=== PATIENT | male | born 1965 | race Caucasian/White ===

== ENCOUNTER 2019-04-09 10:03 | Emergency (ER) | payer OTHER ==
[~2019-04-09] VITALS: Ht 157.5 cm; Wt 79.4 kg
--- NOTE | 2019-04-09 10:03 | NUR ---
Patient BIBA BLS, transferred to bed 3. RN evaluating patient at bedside.
--- NOTE | 2019-04-09 10:05 | NUR ---
54 Y MALE BIBA FOR MECHANICAL FALL. PT REPORTS TRIPPING OVER CLOTHES, LANDING ON HANDS. PT REPORTS 7/10 PAIN IN HANDS AND WRISTS. NO REDNESS, SWELLING, OR ABRASIONS PRESENT. +PALPABLE RADIAL PULSES. +ROM. DENIES HITTING HEAD, NO LOC. VSS AT THIS TIME. PT ALERT AND ORIENTED. FAMILY BEDSIDE. BED IS DOWN, LOCKED, BED RAIL X 1, ERMD TO SEE PT. MEDHX:HTN, PACEMAKER RX:ASPIRIN, ENALAPRIL
--- NOTE | 2019-04-09 10:06 | NUR ---
CORRECTION: CAREGIVER BEDSIDE, NOT FAMILY
[2019-04-09 10:14] VITALS: BP 160/74
--- NOTE | 2019-04-09 10:33 | NUR ---
Dr. Quintana evaluating patient at bedside.
[2019-04-09] MEDS ORDERED: IBUPROFEN 600 MG TAB PO ONE (10:45)
[2019-04-09] MEDS ORDERED: traMADol 50 MG TAB PO ONE (10:45)
--- NOTE | 2019-04-09 11:06 | NUR ---
PT RETURNED FROM [facility] VIA WHEELCHAIR. PT ALERT AND ORIENTED. PAIN 03/03.
--- NOTE | 2019-04-09 11:16 | NUR ---
PT FROM [facility]. CAREGIVER STATES SHE WILL PROVIDE TRANSPORTATION BACK TO FACILITY.
--- NOTE | 2019-04-09 11:17 | NUR ---
DR KNOX RE-EVALUATING PT
--- NOTE | 2019-04-09 11:33 | NUR ---
SLING AND VELCRO SPLINT APLIED BY LAUREN EMT. PT VERBALIZES UNDERSTANDING OF SLING AND SPLINT CARE.
--- NOTE | 2019-04-09 11:33 | NUR ---
PLACED SLING AND VELCRO RIGHT THUMB SPLINT ON PATIENT
[2019-04-09 11:43] VITALS: BP 165/72
--- NOTE | 2019-04-09 11:43 | NUR ---
Patient discharged with v/s stable. Written and verbal after care instructions given and explained TO BOTH PT AND CAREGIVER. Patient alert, oriented and verbalized understanding of instructions. Ambulatory with steady gait. All questions addressed prior to discharge. ID band removed. Patient advised to follow up with PMD. Rx of TRAMADOL HYDROCHLORIDE given. Patient educated on indication of medication including possible reaction and side effects. Opportunity to ask questions provided and answered. PT AND CAREGIVER PROIVDED WITH CD COPY AND NOTES FOR EXCUSE FROM WORK FOR TODAY.
== END 2019-04-09 11:43 | disposition home or self-care (01) ==
LOC: MED 10:03
DX: S63.216A Subluxation of metacarpophalangeal joint of right little finger, initial encounter (principal); S63.91XA Sprain of unspecified part of right wrist and hand, initial encounter; I10 Essential (primary) hypertension; Z88.0 Allergy status to penicillin; Z95.0 Presence of cardiac pacemaker; W01.0XXA Fall on same level from slipping, tripping and stumbling without subsequent striking against object, initial encounter; Y93.01 Activity, walking, marching and hiking; Y92.098 Other place in other non-institutional residence as the place of occurrence of the external cause; Y99.8 Other external cause status
CPT/HCPCS: 73110; 73130; 99283

== ENCOUNTER 2024-03-31 09:57 | Emergency (ER) | payer OTHER ==
[~2024-03-31] VITALS: Ht 162.6 cm; Wt 127.0 kg
[2024-03-31 10:17] VITALS: BP 148/68; PULSE 87; RESP 19; TEMP 98.2; O2SAT 98
[2024-03-31] MEDS ORDERED: KETOROLAC 30 MG/ML VIAL IM ONE (10:50)
[2024-03-31 11:46] LABS: BASOPHILS # (AUTO) 0.1 K/uL (0.00-0.22); BASOPHILS % (AUTO) 1.1 % (0.0-2.0); EOSINOPHILS # (AUTO) 0.3 K/uL (0-0.4); EOSINOPHILS % (AUTO) 5.1 % (0.0-4.0); HEMATOCRIT 33.6 % (36-52); HEMOGLOBIN 11.3 g/dL (12.0-18.0); LYMPHOCYTES # (AUTO) 0.9 K/uL (2.0-11.5); LYMPHOCYTES % (AUTO) 16.4 % (20.5-51.1); MEAN CORPUSCULAR HEMOGLOBIN 28 pg (27-31); MEAN CORPUSCULAR HGB CONC 34 g/dL (33-37); MEAN CORPUSCULAR VOLUME 84.3 fL (80-94); MONOCYTES # (AUTO) 0.3 K/uL (0.8-1.0); MONOCYTES % (AUTO) 5.8 % (1.7-9.3); NEUTROPHILS # (AUTO) 3.9 K/uL (1.8-7.7); NEUTROPHILS % (AUTO) 71.6 % (42.2-75.2); PLATELET COUNT (AUTO) 147 K/uL (140-450); RED BLOOD CELL COUNT(AUTO) 3.98 MIL/uL (4.20-6.10); RED CELL DISTRIBUTION WIDTH 14.5 % (11.6-13.7); WHITE BLOOD COUNT (AUTO) 5.4 K/uL (4.8-10.8)
[2024-03-31 12:10] LABS: ANION GAP 12.7 (8-16); CALCIUM 8.7 mg/dL (8.5-10.1); CARBON DIOXIDE 26.2 mmol/L (21-32); CREATININE 0.9 mg/dL (0.6-1.3); POTASSIUM 3.9 mmol/L (3.5-5.1)
[2024-03-31] MEDS: IBUPROFEN 400 MG TAB PO ONE (12:41)
[2024-03-31 12:59] LABS: APPEARANCE,URINE CLEAR (CLEAR); BILIRUBIN,URINE NEGATIVE (NEGATIVE); BLOOD, URINE NEGATIVE (NEGATIVE); COLOR,URINE YELLOW (YELLOW); LEUKOCYTE ESTERASE ,URINE TRACE (NEGATIVE); NITRITE, URINE NEGATIVE (NEGATIVE); PH,URINE 5.5 (5.0-9.0); PROTEIN,URINE NEGATIVE (NEGATIVE); UGLUCOSE NEGATIVE (NEGATIVE); UROBILINOGEN,URINE 0.2 EU/dL (0.2 - 1)
[2024-03-31 14:30] VITALS: BP 121/54; PULSE 59; RESP 18; TEMP 98.2; O2SAT 98
== END 2024-03-31 14:30 | disposition home or self-care (01) ==
LOC: MED 09:57
DX: S49.92XA Unspecified injury of left shoulder and upper arm, initial encounter (principal); S99.912A Unspecified injury of left ankle, initial encounter; I10 Essential (primary) hypertension; Z86.79 Personal history of other diseases of the circulatory system; Z95.0 Presence of cardiac pacemaker; Z88.0 Allergy status to penicillin; W19.XXXA Unspecified fall, initial encounter; Y93.89 Activity, other specified; Y92.89 Other specified places as the place of occurrence of the external cause; Y99.8 Other external cause status
CPT/HCPCS: 36415; 71045; 73030; 73610; 80048; 81003; 84484; 85025; 93005; 99285; J1885